=== PATIENT | female | born 1960 | race Caucasian/White ===

== ENCOUNTER 2021-11-05 19:36 | Inpatient (IN) | payer MEDICARE, OTHER ==
[~2021-11-05] VITALS: Ht 162.6 cm; Wt 98.9 kg
[~2021-11-05 19:36] MED LIST: ADVIL200 MG PO; ATIVAN0.5 MG PO; CENTRUM SILVER1 EAC1 PO; COLESTID1 GM PO; GLUCOTROL10 MG PO; LOVASTATIN20 MG PO; METFORMIN HCL1000 M1 PO; METFORMIN HCL500 M3 PO; METFORMIN HCL500 MG PO; NEURONTIN600 MG PO; NORCO 10-325 T1 EACH PO; NORCO 7.5-3251 EACH PO; PRINIVIL20 MG PO; PROTONIX 40MG T40 MG PO; SLOW RELEASE I160 MG PO; TIZANIDINE HCL4 MG PO; TRULICITY0.75 MG/0. SC; TRULICITY0.75 MG/0. SUBD; TURMERIC 500 M1 EACH PO; VICODIN 10/3251 EACH PO; VITAMIN D1000 UNI1 PO; XARELTO10 MG PO; ZESTRIL40 MG PO; ZOFRAN4 MG PO
[2021-11-05 20:14] LABS: BASOPHIL 0.4 % (0-2); EOSINOPHIL 2.8 % (0-5); HCT 37.4 % (37.0-47.0); HGB 11.9 g/dl (12.5-16.0); LYMPHOCYTE 16.7 % (15-48); MCHC 31.8 g/dL (32.0-36.0); MCV 81.7 fL (78.0-100.0); MONOCYTE 5.6 % (0-12); MPV 10.7 fL (6.0-9.5); NRBC 0; PLT 364 K/uL (150-400); RBC 4.58 M/uL (4.20-5.40); RDW 15.5 % (11.5-14.0); WBC 16.4 K/uL (4.0-10.5)
[2021-11-05 20:34] LABS: ALBUMIN 3.2 g/dL (3.4-5.0); BILIRUBIN - TOTAL 0.4 mg/dL (0.2-1.0); BUN/CREAT RATIO (CALC) 13.6 RATIO; CREATININE 1.4 mg/dL (0.51-0.95); GLOBULIN (CALCULATION) 4.9 g/dL; MAGNESIUM 1.9 mg/dL (1.8-2.4); PHOSPHORUS 3.4 mg/dL (2.6-4.7); TOTAL PROTEIN 8.1 g/dL (6.4-8.2)
[2021-11-05 21:46] LABS: BILIRUBIN 2+ mg/dL (NEGATIVE); BLOOD 3+ Ery/uL (NEGATIVE); CLARITY CLEAR (CLEAR); COLOR YELLOW (YELLOW); GLUCOSE (U) TRACE mg/dL (NORMAL); LEUKOCYTES 1+ Leu/uL (NEGATIVE); NITRITE NEGATIVE (NEGATIVE); PROTEIN 2+ mg/dL (NEGATIVE); SPECIFIC GRAVITY >=1.030 (1.001-1.030); UROBILINOGEN 0.2 mg/dL (0.2-1.0)
[2021-11-05 21:56] LABS: BACTERIA 3+; YEAST PRESENT
[2021-11-05 21:58] LABS: LACTIC ACID 2.7 mmol/L (0.4-1.9)
[2021-11-05 22:11] LABS: CORONAVIRUS 2019 SARS-COV-2 NEGATIVE (NEGATIVE); INFLUENZA A NAA NEGATIVE (NEGATIVE)
[2021-11-06] MEDS ORDERED: GABAPENTIN800 MG PO (01:35)
[2021-11-06] MEDS ORDERED: FLEXERIL5 MG PO (01:37)
[2021-11-06] MEDS ORDERED: DRISDOL50000 UNIT PO (01:38)
[2021-11-06] MEDS ORDERED: PANTOPRAZOLE SO40 MG PO (01:39)
[2021-11-06] MEDS ORDERED: ONE DAILY WOME1 EAC1 PO (01:40)
[2021-11-06] MEDS ORDERED: GLUCOSAMINE-CH1 EA29 PO (01:42)
[2021-11-06] MEDS ORDERED: NORVASC5 MG PO (01:42)
[2021-11-06] MEDS ORDERED: LISINOPRIL40 MG PO (01:43)
[2021-11-06] MEDS ORDERED: CYMBALTA 30MG C30 MG PO (01:43)
[2021-11-06] MEDS ORDERED: LIPITOR40 MG PO (01:44)
[2021-11-06] MEDS ORDERED: FENOFIBRATE145 MG PO (01:44)
[2021-11-06 06:23] LABS: RETICULOCYTE COUNT 2.3 % (1.0-2.0)
[2021-11-06 06:42] LABS: IRON % SATURATION 5.7 %SAT (20-50)
[2021-11-06 06:57] LABS: BUN/CREAT RATIO (CALC) 13.3 RATIO; C-REACTIVE PROTEIN 1.8 mg/dL (<=0.90); CREATININE 1.66 mg/dL (0.51-0.95); FT4 (FREE T4) 1.3 ng/dL (0.76-1.46); POTASSIUM 4.2 mmol/L (3.5-5.1)
[2021-11-07 06:46] LABS: BASOPHIL 0.5 % (0-2); HCT 33.1 % (37.0-47.0); LYMPHOCYTE 27.1 % (15-48); MCH 25.8 pg (25.0-31.0); MCHC 30.2 g/dL (32.0-36.0); MCV 85.5 fL (78.0-100.0); MONOCYTE 7.6 % (0-12); MPV 11.5 fL (6.0-9.5); NEUTROPHIL 56.6 % (41-80); NRBC 0; PLT 253 K/uL (150-400); RBC 3.87 M/uL (4.20-5.40); RDW 15.8 % (11.5-14.0); WBC 6.2 K/uL (4.0-10.5)
[2021-11-07 07:03] LABS: BUN/CREAT RATIO (CALC) 19.4 RATIO; CREATININE 1.29 mg/dL (0.51-0.95); POTASSIUM 4.9 mmol/L (3.5-5.1)
[2021-11-07] MEDS ORDERED: NEURONTIN300 MG PO (08:38)
[2021-11-07] MEDS ORDERED: TRULICITY0.75 MG/0. SC (08:38)
[2021-11-07] MEDS ORDERED: FLORANEX TABLE1 EACH PO (08:38)
[2021-11-07] MEDS ORDERED: AUGMENTIN 500-1 EACH PO (08:38)
[2021-11-07] MEDS ORDERED: GLUCOTROL10 MG PO (08:38)
[2021-11-07] MEDS ORDERED: METFORMIN HCL500 M3 PO (08:38)
[2021-11-07] MEDS ORDERED: FEOSOL325 MG PO (08:57)
== END 2021-11-07 15:35 | disposition home or self-care (01) | DRG 872 ==
LOC: FER 19:36 → FTCU 23:22
PROVIDERS: Emergency Medicine; Family Medicine; Nurse Practitioner Acute Care; ADMIT Internal Medicine
DX: A41.9 Sepsis, unspecified organism (principal); N30.01 Acute cystitis with hematuria; N17.9 Acute kidney failure, unspecified; E87.2 Acidosis; R65.20 Severe sepsis without septic shock; D50.9 Iron deficiency anemia, unspecified; Z20.822 Contact with and (suspected) exposure to COVID-19; R25.1 Tremor, unspecified; I10 Essential (primary) hypertension; E78.5 Hyperlipidemia, unspecified; M79.7 Fibromyalgia; F41.9 Anxiety disorder, unspecified; E11.65 Type 2 diabetes mellitus with hyperglycemia; R29.6 Repeated falls; M25.562 Pain in left knee; G89.29 Other chronic pain; K21.9 Gastro-esophageal reflux disease without esophagitis; G47.33 Obstructive sleep apnea (adult) (pediatric); Z96.652 Presence of left artificial knee joint; Z96.611 Presence of right artificial shoulder joint; S21.001D Unspecified open wound of right breast, subsequent encounter; Z85.828 Personal history of other malignant neoplasm of skin; Z90.49 Acquired absence of other specified parts of digestive tract; Z88.8 Allergy status to other drugs, medicaments and biological substances; Z79.84 Long term (current) use of oral hypoglycemic drugs; Z79.899 Other long term (current) drug therapy; X58.XXXD Exposure to other specified factors, subsequent encounter
CPT/HCPCS: 36415; 70450; 71045; 73560; 80048; 80053; 81001; 82728; 83036; 83540; 83550; 83605; 83735; 84100; 84145; 84439; 84443; 84484; 85025; 85379; 86140; 87040; 87088; 93005; 94010; 97162; 97166; 97530-GP; J1650; J1815; J2405; J2543; J2916; J7030; U0002

== ENCOUNTER 2021-11-11 18:28 | Day surgery (SDCO) | payer MEDICARE, OTHER ==
[~2021-11-11] VITALS: Ht 162.6 cm; Wt 93.2 kg
[~2021-11-11 18:28] MED LIST changes: +AUGMENTIN 500-1 EACH PO; +CYMBALTA 30MG C30 MG PO; +DRISDOL50000 UNIT PO; +FENOFIBRATE145 MG PO; +FEOSOL325 MG PO; +FLEXERIL5 MG PO; +FLORANEX TABLE1 EACH PO; +GABAPENTIN800 MG PO; +GLUCOSAMINE-CH1 EA29 PO; +LIPITOR40 MG PO; +LISINOPRIL40 MG PO; +NEURONTIN300 MG PO; +NORVASC5 MG PO; +ONE DAILY WOME1 EAC1 PO; +PANTOPRAZOLE SO40 MG PO
[2021-11-11 19:37] LABS: BASOPHIL 0.3 % (0-2); EOSINOPHIL 5.6 % (0-5); HCT 37.1 % (37.0-47.0); HGB 11.2 g/dl (12.5-16.0); LYMPHOCYTE 25.3 % (15-48); MCH 25.4 pg (25.0-31.0); MCHC 30.2 g/dL (32.0-36.0); MCV 84.1 fL (78.0-100.0); MONOCYTE 5.2 % (0-12); MPV 10.7 fL (6.0-9.5); NEUTROPHIL 63.3 % (41-80); NRBC 0; PLT 336 K/uL (150-400); RBC 4.41 M/uL (4.20-5.40); RDW 15.3 % (11.5-14.0); WBC 8.8 K/uL (4.0-10.5)
[2021-11-11 19:56] LABS: BILIRUBIN - TOTAL 0.4 mg/dL (0.2-1.0); BUN/CREAT RATIO (CALC) 23.5 RATIO; CREATININE 0.98 mg/dL (0.51-0.95); GLOBULIN (CALCULATION) 5.2 g/dL; TOTAL PROTEIN 8.2 g/dL (6.4-8.2)
[2021-11-11 19:57] LABS: LACTIC ACID 2.3 mmol/L (0.4-1.9)
[2021-11-11 20:21] LABS: INR 1.08 (0.9-1.2); PROTHROMBIN TIME 13.4 SECONDS (11.8-13.4); PTT 30.1 SECONDS (24.4-34.7)
[2021-11-11 20:30] LABS: CORONAVIRUS 2019 SARS-COV-2 NEGATIVE (NEGATIVE); INFLUENZA A NAA NEGATIVE (NEGATIVE)
[2021-11-12] MEDS ORDERED: GABAPENTIN800 MG PO (01:58)
--- NOTE | 2021-11-12 14:05 | NUR ---
11/12 Ms. Green lives at home with her spouse. She has a rw, s, chair, 3in1, lift chair, and wc. A referral was made to [facility] on 11/06. Ms. Green reports that she has not heard from [facility]. - [facility] reports to be awaiting a response from the PCP. Also patient did not return [facility]'s telephone call. [facility] was transferred to patient's room.
[2021-11-12] MEDS ORDERED: VICODIN 10/3251 EACH PO (15:29)
== END 2021-11-12 16:40 | disposition home or self-care (01) ==
LOC: FER 18:28 → FMS 22:27
PROVIDERS: Internal Medicine; ADMIT Internal Medicine
DX: I80.8 Phlebitis and thrombophlebitis of other sites (principal); E11.65 Type 2 diabetes mellitus with hyperglycemia; I10 Essential (primary) hypertension; M79.7 Fibromyalgia; R91.1 Solitary pulmonary nodule; G47.33 Obstructive sleep apnea (adult) (pediatric); E78.5 Hyperlipidemia, unspecified; K21.9 Gastro-esophageal reflux disease without esophagitis; D50.9 Iron deficiency anemia, unspecified; Z20.822 Contact with and (suspected) exposure to COVID-19; Z88.8 Allergy status to other drugs, medicaments and biological substances
CPT/HCPCS: 36415; 71275; 73200; 80053; 83605; 84145; 84484; 85025; 85610; 85730; 87040; 93005; 93971; 94010; 96372; G0378; J1170; J1650; J1885; J2543; J7030; Q9967; U0002

== ENCOUNTER 2021-12-21 10:56 | Day surgery (SDCO) | payer MEDICARE ==
[~2021-12-21] VITALS: Ht 162.6 cm; Wt 92.8 kg
[2021-12-21 13:02] LABS: BILIRUBIN NEGATIVE (NEGATIVE); BLOOD NEGATIVE Ery/uL (NEGATIVE); CLARITY CLEAR (CLEAR); COLOR YELLOW (YELLOW); GLUCOSE (U) 3+ mg/dL (NORMAL); LEUKOCYTES NEGATIVE Leu/uL (NEGATIVE); NITRITE NEGATIVE (NEGATIVE); PROTEIN NEGATIVE (NEGATIVE); SPECIFIC GRAVITY <=1.005 (1.001-1.030); UROBILINOGEN 0.2 mg/dL (0.2-1.0)
[2021-12-21 13:03] LABS: BASOPHIL 0.4 % (0-2); EOSINOPHIL 3.9 % (0-5); HCT 37.7 % (37.0-47.0); HGB 11.9 g/dl (12.5-16.0); LYMPHOCYTE 23.6 % (15-48); MCH 26.3 pg (25.0-31.0); MCHC 31.6 g/dL (32.0-36.0); MCV 83.2 fL (78.0-100.0); MONOCYTE 5.1 % (0-12); MPV 11.9 fL (6.0-9.5); NEUTROPHIL 66.5 % (41-80); NRBC 0; PLT 306 K/uL (150-400); RBC 4.53 M/uL (4.20-5.40)
[2021-12-21 13:15] LABS: LACTIC ACID 1.3 mmol/L (0.4-1.9)
[2021-12-21 13:19] LABS: ALBUMIN 3.3 g/dL (3.4-5.0); BILIRUBIN - TOTAL 0.5 mg/dL (0.2-1.0); BUN/CREAT RATIO (CALC) 36.3 RATIO; CREATININE 0.91 mg/dL (0.51-0.95); GLOBULIN (CALCULATION) 4.7 g/dL; POTASSIUM 6.1 mmol/L (3.5-5.1)
[2021-12-21 15:40] LABS: BUN/CREAT RATIO (CALC) 34.9 RATIO; CREATININE 0.83 mg/dL (0.51-0.95)
[2021-12-21 15:41] LABS: POTASSIUM 4.6 mmol/L (3.5-5.1)
[2021-12-21] MEDS ORDERED: GABAPENTIN800 MG PO (18:54)
[2021-12-21] MEDS ORDERED: DIFLUCAN150 MG PO (18:55)
[2021-12-21] MEDS ORDERED: HUMULIN R100 UNIT/1 SC (18:58)
[2021-12-21] MEDS ORDERED: HUMULIN N100 UNIT/3 SC (19:00)
[2021-12-21] MEDS ORDERED: TOPROL XL 25MG25 MG PO (21:05)
[2021-12-22 06:44] LABS: BASOPHIL 0.3 % (0-2); EOSINOPHIL 5.2 % (0-5); HCT 35.7 % (37.0-47.0); HGB 11.1 g/dl (12.5-16.0); LYMPHOCYTE 36.5 % (15-48); MCH 26.5 pg (25.0-31.0); MCHC 31.1 g/dL (32.0-36.0); MCV 85.2 fL (78.0-100.0); MONOCYTE 4.6 % (0-12); MPV 11.5 fL (6.0-9.5); NEUTROPHIL 53.1 % (41-80); NRBC 0; PLT 256 K/uL (150-400); RBC 4.19 M/uL (4.20-5.40); RDW 14.9 % (11.5-14.0); WBC 9.3 K/uL (4.0-10.5)
[2021-12-22 07:12] LABS: BUN/CREAT RATIO (CALC) 33.3 RATIO; CREATININE 0.72 mg/dL (0.51-0.95); MAGNESIUM 1.5 mg/dL (1.8-2.4); POTASSIUM 4.9 mmol/L (3.5-5.1)
[2021-12-22] MEDS ORDERED: HUMULIN N100 UNIT/1 SC (12:48)
== END 2021-12-22 14:51 | disposition home or self-care (01) ==
LOC: FER 10:56 → FMS 13:55
PROVIDERS: Emergency Medicine; ADMIT Internal Medicine
DX: E11.65 Type 2 diabetes mellitus with hyperglycemia (principal); R53.1 Weakness; E78.5 Hyperlipidemia, unspecified; E86.0 Dehydration; E87.1 Hypo-osmolality and hyponatremia; M79.7 Fibromyalgia; D64.89 Other specified anemias; K21.9 Gastro-esophageal reflux disease without esophagitis; I10 Essential (primary) hypertension; Z91.81 History of falling; Z85.828 Personal history of other malignant neoplasm of skin; Z88.8 Allergy status to other drugs, medicaments and biological substances
CPT/HCPCS: 36415; 71045; 80048; 80053; 81003; 83036; 83605; 83735; 85025; 87088; 93005; G0378; J1650; J2405; J3475; J7030; J7040